=== PATIENT | male | born 1950 | race Caucasian/White ===

== ENCOUNTER 2017-11-14 05:30 | Day surgery (SDC) | payer OTHER ==
[~2017-11-14] VITALS: Ht 180.3 cm; Wt 128.6 kg
[2017-11-14] VITALS (7 sets, daily range): BP systolic 146–174; BP diastolic 85–107
--- NOTE | ~2017-11-14 | EKG ---
[address] [address] ELECTROCARDIOGRAM REPORT Name: JUAN J KAN Room #: 412-P [facility].#: [id number] Admission: 11/14/17 Attend Phys: Tello Lambert MD Discharge: Date of : 52 Report #: [id number] THIS REPORT FOR: //name// [facility] Test Date: 2017-11-14 Test Time: 10:17:01 Pat Name: JUAN J KAN Department: Room: 150 18 Gender: M Office Support: HAYLEE : 1950 Requested By: Tello Lambert Order Number: [id number] MD: Emory Browning Measurements Intervals [place] Rate: 60 P: 56 OK: 217 QRS: 45 QRSD: 106 T: 67 QT: 411 QTc: 411 Interpretive Statements Sinus rhythm prolonged OK interval No previous ECG available for comparison Electronically Signed On 11-14-2017 17:32:32 KILN PACKER by Emory Browning [email or web address] <ELECTRONICALLY SIGNED> By: Emory Browning MD, [facility] 11/14/17 1732 1017 [id number] Emory Browning MD, FACC /EPI
--- NOTE | ~2017-11-14 | O ---
[facility] [place] [address] OPERATIVE REPORT Name: JUAN J KAN Room #: DEP [facility]..#: [id number] Admission: 11/14/17 Attend Phys: Tello Lambert MD Discharge: 11/15/17 Date of : 52 Report #: [id number] THIS REPORT FOR: //name// CC: Mesfin Guerrier MD FAM unknown Tello Lambert DATE OF SERVICE: 11/14/2017 PREOPERATIVE DIAGNOSIS: Large left inguinal hernia incarcerated. POSTOPERATIVE DIAGNOSES: Huge left inguinal hernia with sliding component and incarcerated sigmoid colon. PROCEDURE PERFORMED: Open repair of incarcerated left inguinal hernia with extended size Prolene hernia system. SURGEON: Tello Lambert MD ANESTHESIA: General anesthesia. COMPLICATIONS: None. ESTIMATED BLOOD LOSS: 20 mL. DESCRIPTION OF PROCEDURE: With the patient under general anesthesia, abdomen was prepped and draped in sterile fashion. IV antibiotic was administered. Timeout was performed. A transverse slightly oblique incision was made at the level of the pubic tubercle. This is about 4 inches in length. After incising through skin and subcutaneous tissue, the superficial circumflex vein was isolated, divided between clamps and then ligated with 3-0 Vicryl tie. The Kortney's layer was divided. The external oblique fascia was identified. The external oblique fascia was opened up. The space between the external oblique fascia and the inner abdominal wall was opened up without difficulty. The iliohypogastric nerve was identified, preserved from harm. The patient had very large scrotal hernia. The sac was isolated. The sac was grasped with hemostat, opened. I can see the sigmoid colon within the hernia sac. This turned out to be the distal limb of the sigmoid colon, not the proximal limb. Some of this colon was free and I was able to pull it back from the scrotum and half of the bowel that was out was reduced. This is the distal portion again. When I followed it down, the bowel was adhesed to the hernia sac. The distal limb was then found. This was more posterior and lateral located. It turned out to be a sliding hernia. Instead of the typical with a sliding component, it is lateral at the level of the internal ring. The sliding component is down into the scrotum. I was able to free the sac and then brought it out of the scrotum. That is when I realized that this has a very large sliding component. [facility] [address] [place] [address] OPERATIVE REPORT Name: LORETAJUAN J Room #: DEP SD M.Sp.#: [id number] Admission: 11/14/17 Attend Phys: Tello Lambert MD Discharge: 11/15/17 Date of : 52 Report #: [id number] Currently, the colon was then freed from the peritoneum. The patient was paralyzed, intubated and then I was able to work the bowel back in. I did have to open the lateral oblique muscle, lateral part of the internal ring to get this reduced. Pretty much the entire floor was gone. The colon was reduced and properitoneal dissection was bluntly carried out without difficulty. The fascia medially was grasped with Allis clamp and lifted off from the properitoneal space. The inferior epigastric vessel was identified and the space was created above superior to this. The space was created more superficial to the vessel, opening the properitoneal space. Extended Prolene hernia system was used. The circular piece was placed posterior to the wall in the properitoneal space. The medial corner was sutured to pubic tubercle with 0 Prolene in interrupted fashion. The rest of the mesh was opened up behind the wall. The oval portion was then laid over the wall. Inferomedially this was sutured to the Agustin's ligament and then into the inguinal ligament laterally. A slit was made in the mesh for the cord. There was a lipoma that was free from the cord and removed. The cord was intact. A slit was made in the mesh to accommodate the cord at the internal ring level. The suture was then carried laterally closing the mesh to each other. This carried lateral to the internal ring and tied to itself. Medially, the mesh was sutured to the internal oblique and anterior part of the rectus sheath. Stitch was carefully placed to avoid the iliohypogastric nerve. The wall was reconstructed without difficulty. The patient had a good solid repair. The cord was then placed over the mesh. The external oblique fascia was closed with 2-0 PDS. Irrigation was performed. No bleeding was identified. Kortney's layer was closed with 3-0 plain suture. Skin was closed with 5-0 PDS running subcuticular fashion, Steri-Strips, 4 x 4s, OpSite used for dressing. The patient tolerated procedure well. <ELECTRONICALLY SIGNED> By: Tello Lambert MD 11/28/17 1513 1730 1831 Tello Lambert MD /nt
[~2017-11-14 05:30] MED LIST: CAYENNE450 MG PO; FLAX SEED OIL1000 MG PO; GARLIC CHOLEST300 MG PO; LISINOPRIL20 MG PO; MEGARED OMEGA-1 EAC2 PO; TOPROL XL50 MG PO
[2017-11-15 03:55] VITALS: BP 146/84
[2017-11-15 09:41] VITALS: BP 151/81
[2017-11-15] MEDS ORDERED: ULTRAM 50MG TAB50 MG PO (10:44)
[2017-11-15 10:57] VITALS: BP 151/81
== END 2017-11-15 12:32 | disposition home or self-care (01) ==
LOC: 4N 05:30 → OR 05:30 → TBA 05:30 → OR 15:23 → 4N 16:49 → ENTRNSPT 11-15 12:15 → EDTRNSPTSTS 11-15 12:18 → OR 11-15 12:32
DX: K40.30 Unilateral inguinal hernia, with obstruction, without gangrene, not specified as recurrent (principal); I10 Essential (primary) hypertension; F17.210 Nicotine dependence, cigarettes, uncomplicated; Z98.890 Other specified postprocedural states; Z79.899 Other long term (current) drug therapy; Z79.891 Long term (current) use of opiate analgesic
CPT/HCPCS: 50010; 50101; 50386; 50403; 54111; 56524; 56525; 62110; 62900; 70005